=== PATIENT | female | born 2000 | race Two or more races ===

== ENCOUNTER 2021-07-30 16:00 | Emergency (ER) | payer OTHER ==
[~2021-07-30] VITALS: Ht 152.4 cm; Wt 64.9 kg
[2021-07-30] MEDS ORDERED: PRENATAL PLUS1 EAC1 (16:39)
== END 2021-07-30 19:26 | disposition home or self-care (01) ==
LOC: ER 16:00
DX: O26.851 Spotting complicating pregnancy, first trimester (principal); Z3A.14 14 weeks gestation of pregnancy

== ENCOUNTER 2021-08-17 00:36 | Emergency (ER) | payer OTHER ==
[~2021-08-17] VITALS: Ht 152.4 cm; Wt 66.7 kg
[~2021-08-17 00:36] MED LIST: PRENATAL PLUS1 EAC1
== END 2021-08-17 03:44 | disposition home or self-care (01) ==
LOC: ER 00:36
DX: O23.42 Unspecified infection of urinary tract in pregnancy, second trimester (principal); N39.0 Urinary tract infection, site not specified; Z3A.16 16 weeks gestation of pregnancy

== ENCOUNTER 2021-10-31 10:42 | Inpatient (IN) | payer OTHER ==
[~2021-10-31] VITALS: Ht 154.9 cm; Wt 0.9 kg
[2021-10-31] MEDS ORDERED: PRENATAL TABLE1 EAC1 (10:49)
== END 2021-11-03 18:15 | disposition home or self-care (01) | DRG 786 ==
LOC: OBS/DEL 10:42 → OB/GYN 11:04 → LDR 11:04 → O/R 13:43 → OB/GYN 15:09
PROVIDERS: ADMIT Obstetrics & Gynecology; ATTEND Obstetrics & Gynecology
PROC: 4A1HXCZ Monitoring of Products of Conception, Cardiac Rate, External Approach (ICD-10-PCS; 2021-10-31)
PROC: 10D00Z1 Extraction of Products of Conception, Low, Open Approach (ICD-10-PCS; principal; 2021-10-31 13:45)
DX: O32.1XX0 Maternal care for breech presentation, not applicable or unspecified (principal); O60.14X0 Preterm labor third trimester with preterm delivery third trimester, not applicable or unspecified; O45.8X3 Other premature separation of placenta, third trimester; Z3A.27 27 weeks gestation of pregnancy; Z37.0 Single live birth; Z20.822 Contact with and (suspected) exposure to COVID-19

== ENCOUNTER 2021-12-07 06:30 | Emergency (ER) | payer OTHER ==
[~2021-12-07] VITALS: Ht 152.4 cm; Wt 61.2 kg
[~2021-12-07 06:30] MED LIST changes: +PRENATAL TABLE1 EAC1
== END 2021-12-07 11:15 | disposition home or self-care (01) ==
LOC: ER 06:30
DX: O90.9 Complication of the puerperium, unspecified (principal); O99.893 Other specified diseases and conditions complicating puerperium; R00.1 Bradycardia, unspecified